=== PATIENT | male | born 1985 | race Caucasian/White ===

== ENCOUNTER 2022-01-10 14:35 | Emergency (ER) | payer OTHER ==
[~2022-01-10] VITALS: Ht 182.8 cm; Wt 97.5 kg
== END 2022-01-10 17:22 | disposition home or self-care (01) ==
LOC: ED 14:35
DX: T22.211A Burn of second degree of right forearm, initial encounter (principal); T65.891A Toxic effect of other specified substances, accidental (unintentional), initial encounter; Y92.89 Other specified places as the place of occurrence of the external cause